=== PATIENT | female | born 1990 | race Hispanic/Latino ===

== ENCOUNTER → 2024-09-15 | Day surgery (SDC) | payer MEDICARE, OTHER ==
[2024-09-11 11:01] LABS: BASOPHILS % 0.6 % (0.0-1.0); EOSINOPHILS % 1.6 % (0.0-6.0); LYMPHOCYTES % 26.4 % (18.0-39.1); MONOCYTES % 7.8 % (4.4-11.3); NEUTROPHILS % 63.2 % (38.7-80.0); RED CELL DISTRIBUTION WIDTH 13.8 % (11.7-14.4)
[2024-09-11 11:30] LABS: EST GLOMERULAR FILTRATION RATE 105.0 ML/MIN (>=60)
[~2024-09-15] MED LIST: ABILIFY5 MG PO; B-12 INJ; BUSPIRONE HCL10 MG PO; CEFAZOLIN SODIUM 2 GM ONE; CORLANOR5 MG PO; CYCLOBENZAPRINE5 MG PO; DEXAMETHASONE SOD PHOS INJ 4 MG/ML SDV ONE; EPHEDRINE SULFATE INJ 50 MG/ML VIAL ONE; FENTANYL CITRATE/PF 100MCG/2 ML INJ ONE; FLUDROCORTISON0.1 MG PO; FOLIC ACID0.8 MG PO; HAIR, SKIN A66.7 MC1; HYDROCODON-ACE1 EAC9 PO; INDERAL10 MG PO; LEVOTHYROXINE50 MCG PO; LIDOCAINE HCL 2% LOCAL INJ 5 ML SDV VIAL INJ ONE; LINZESS72 MCG PO; MELATONIN3 MG PO; METFORMIN HCL500 MG PO; METHOTREXATE2.5 MG PO; MIDAZOLAM HCL 2 MG/2 ML VIAL ONE; MIEBO 100% EYE D3 ML; ONDANSETRON HCL INJ 2MG/ML 2ML 2 MG/ML VIAL ONE; PANTOPRAZOLE SO40 MG PO; PENTOXIFYLLINE400 MG PO; PHENERGAN25 MG/1 M1 PO; PLAQUENIL200 MG PO; PLAVIX75 MG PO; POTASSIUM CL MICRO PO; PROPOFOL IV EMULSION 10 MG/ML 20 ML VIAL ONE; QUETIAPINE FUM100 MG PO; SALAGEN5 MG PO; SUCCINYLCHOLINE CHLORIDE 20 MG/ML 10ML VIAL ONE; TOPAMAX100 MG PO; TRENTAL; UBRELVY100 MG PO; VENTOLIN HFA18 GM INH; WELLBUTRIN XL300 MG PO
[2024-09-15] MEDS: CEFAZOLIN SODIUM 2 GM VIAL IV ONE (06:36)
[2024-09-15] MEDS: LACTATED RINGER'S 1,000 ML BAG IV ONE (06:36)
[2024-09-15] MEDS: ONDANSETRON HCL INJ 2MG/ML 2ML 2 MG/ML VIAL ONE (08:17)
[2024-09-15] MEDS: METOCLOPRAMIDE HCL 10 MG/2ML VIAL ONE (08:17)
[2024-09-15] MEDS: FENTANYL CITRATE/PF 100MCG/2 ML INJ ONE (08:17)
[2024-09-15] MEDS: HYDROCODONE/APAP 10MG-325MG TAB ONE (08:30)
[2024-09-15 09:10] VITALS: BP 115/72; PULSE 88; RESP 16; O2SAT 99
== END | disposition home or self-care (01) ==
LOC: OR 05:30
PROVIDERS: ATTEND Orthopaedic Surgery
DX: S83.231A Complex tear of medial meniscus, current injury, right knee, initial encounter (principal); S83.281A Other tear of lateral meniscus, current injury, right knee, initial encounter; M65.161 Other infective (teno)synovitis, right knee; M67.51 Plica syndrome, right knee; M22.41 Chondromalacia patellae, right knee; M06.9 Rheumatoid arthritis, unspecified; G89.29 Other chronic pain; E11.9 Type 2 diabetes mellitus without complications; E03.9 Hypothyroidism, unspecified; J45.909 Unspecified asthma, uncomplicated; K21.9 Gastro-esophageal reflux disease without esophagitis; F31.9 Bipolar disorder, unspecified; W22.8XXA Striking against or struck by other objects, initial encounter; Y92.89 Other specified places as the place of occurrence of the external cause; Z88.2 Allergy status to sulfonamides; Z88.8 Allergy status to other drugs, medicaments and biological substances; Z88.6 Allergy status to analgesic agent; Z88.1 Allergy status to other antibiotic agents; Z91.040 Latex allergy status; Z01.810 Encounter for preprocedural cardiovascular examination; Z01.812 Encounter for preprocedural laboratory examination; Z01.818 Encounter for other preprocedural examination; Z79.899 Other long term (current) drug therapy; Z79.02 Long term (current) use of antithrombotics/antiplatelets; Z79.84 Long term (current) use of oral hypoglycemic drugs; Z82.62 Family history of osteoporosis; Z82.61 Family history of arthritis
CPT/HCPCS: 29882; 36415; 71046; 80053; 81025; 85025; 93005; C1713; J0330; J1100; J2003; J2405; J2704; J2765; J3010; J7121; J2250